=== PATIENT | male | born 1990 | race Caucasian/White ===

== ENCOUNTER 2019-11-13 19:07 | Emergency (ER) | payer MEDICAID, OTHER ==
[~2019-11-13] VITALS: Ht 175.3 cm; Wt 70.0 kg
[2019-11-13] MEDS ORDERED: MORPHINE SULFATE 2 MG/ML CPJ (NOT FOR IM USE) IV ONE (19:45)
[2019-11-13 20:18] LABS: CHLORIDE 106 mEq/L (98-107)
[2019-11-13 20:21] LABS: HEMOGLOBIN. 15.2 g/dL (14.0-18.0); MEAN CORPUSCULAR HEMOGLOBIN 29.9 pg (28.0-32.0); MEAN CORPUSCULAR VOLUME 86.8 fL (80.0-94.0); PLATELET 236 x1000/uL (130-400); RED BLOOD CELL COUNT 5.07 mill/uL (4.7-6.1); RED CELL DISTRIBUTION WIDTH 12.7 % (11.6-14.6)
[2019-11-13] MEDS ORDERED: IOHEXOL-350 100 ML BOTTLE ONE (22:02)
[2019-11-13 22:50] LABS: PLATELET ESTIMATE NORMAL
[2019-11-14] MEDS ORDERED: HYDROCODONE/ACETAMINOPHEN 5/325MG TABLET PO ONE
[2019-11-14 00:33] VITALS: BP 128/77
== END 2019-11-14 00:48 | disposition home or self-care (01) ==
LOC: ER 19:07
DX: S82.142A Displaced bicondylar fracture of left tibia, initial encounter for closed fracture (principal); S00.83XA Contusion of other part of head, initial encounter; Z98.890 Other specified postprocedural states; V13.4XXA Pedal cycle driver injured in collision with car, pick-up truck or van in traffic accident, initial encounter; Y93.89 Activity, other specified; Y92.488 Other paved roadways as the place of occurrence of the external cause
CPT/HCPCS: 12011; 29505; 36415; 70486; 71045; 73552; 73560; 73590; 73706; 80053; 85025; 96374; 99285; J2270; Q9967; Z7610